=== PATIENT | male | born 1980 | race Two or more races ===

== ENCOUNTER 2018-05-26 19:56 | Emergency (ER) | payer MEDICAID, OTHER ==
[~2018-05-26] VITALS: Ht 175.3 cm; Wt 83.9 kg
[2018-05-26 20:54] VITALS: BP 154/97
== END 2018-05-26 23:00 | disposition left against medical advice (07) ==
LOC: ER 19:56
DX: S61.219A Laceration without foreign body of unspecified finger without damage to nail, initial encounter (principal); Z53.21 Procedure and treatment not carried out due to patient leaving prior to being seen by health care provider; W45.8XXA Other foreign body or object entering through skin, initial encounter; Y93.89 Activity, other specified; Y99.8 Other external cause status; Y92.89 Other specified places as the place of occurrence of the external cause

== ENCOUNTER 2020-09-06 15:06 | Inpatient (IN) | payer MEDICAID ==
[~2020-09-06] VITALS: Ht 172.7 cm; Wt 108.7 kg
[2020-09-06] MEDS ORDERED: cloNIDine HCL 0.1 MG TAB PO ONE ×2 (16:15→19:45)
[2020-09-06 16:31] LABS: Basophils # (auto) 0.1 10 ^3/uL (0-0.2); Basophils % (auto) 0.7 % (0.0-2.0); Eosinophils # (auto) 0.3 10 ^3/uL (0-0.8); Eosinophils % (auto) 2.5 % (0.0-7.0); Lymphocytes # (auto) 3.8 10 ^3/uL (0.4-5.4); Lymphocytes % (auto) 28.3 % (10.0-50.0); Mean Corpuscular Hemoglobin 29.5 pg (28.0-32.0); Mean Corpuscular Hgb Conc. 34.1 g/dL (32.0-36.0); Mean Corpuscular Volume 86.4 fL (80.0-100.0); Monocytes # (auto) 1.2 10 ^3/uL (0-1.3); Monocytes % (auto) 9.1 % (0.0-12.0); Neutrophils % (auto) 59.4 % (37.0-80.0); Nucleated Red Blood Cells % 0.1 %; Red Blood Cells 4.74 10^6/uL (4.5-5.90); White Blood Cell 13.5 10^3/uL (4.4-10.8)
[2020-09-06 16:44] LABS: Magnesium 2.3 mg/dL (1.6-2.6)
[2020-09-06 20:41] LABS: Calcium 8.7 mg/dL (8.5-10.1); Potassium 3.1 mmol/L (3.5-5.1)
[2020-09-06 20:44] LABS: Bilirubin, Total 0.3 mg/dL (0.2-1.0); Total Protein 8.2 g/dL (6.4-8.2)
[2020-09-06] MEDS ORDERED: LABETALOL HCL 5 MG/ML 4ML SYRINGE IV ONE (22:00)
[2020-09-06 22:33] LABS: Urine Bacteria NONE SEEN /hpf (None Seen); Urine Blood Negative /uL (Negative); Urine Specific Gravity 1.014 (1.001-1.035); Urine WBC <1 /hpf (0 - 3)
[2020-09-07] MEDS ORDERED: POTASSIUM CHL 20 Meq TABLET PO ONE (00:45)
[2020-09-07] MEDS ORDERED: MORPHINE SULFATE INJECTION 2 MG/ML SYRG IV PRN (00:45)
[2020-09-07] MEDS ORDERED: NITROGLYCERIN 0.4 MG SL TAB SL PRN (00:45)
[2020-09-07] MEDS ORDERED: ENALAPRILAT 1.25 MG/ML-1ML VIAL IV ONE (00:45)
[2020-09-07] MEDS ORDERED: ONDANSETRON HCL 4 MG/2 ML VIAL IV PRN (00:45)
[2020-09-07 01:24] LABS: Cholesterol 237 mg/dL (< 200)
[2020-09-07 01:42] LABS: HDL Cholesterol 35 mg/dL (40-59); LDL Cholesterol 144 mg/dL (< 100); Triglycerides 336 mg/dL (< 150)
[2020-09-07] MEDS: cloNIDine HCL 0.1 MG TAB PO PRN ×3 (02:05→18:19)
[2020-09-07 02:27] VITALS: BP 165/104
[2020-09-07 03:12] VITALS: BP 165/104
[2020-09-07] MEDS ORDERED: cloNIDine HCL 0.1 MG TAB PO ONE (06:30)
[2020-09-07 09:00] VITALS: BP 164/107
[2020-09-07] MEDS ORDERED: amLODIPine BESYLATE 5 MG TAB PO SCH (10:00)
[2020-09-07] MEDS: FAMOTIDINE 20 MG TAB PO SCH ×2 (12:14→20:11)
[2020-09-07] MEDS: ACETAMINOPHEN 325 MG TAB PO PRN (12:21)
[2020-09-07 13:00] VITALS: BP 165/98
[2020-09-07] MEDS ORDERED: amLODIPine BESYLATE 5 MG TAB PO ONE (15:30)
[2020-09-07] MEDS ORDERED: LISINOPRIL 10 MG TAB PO ONE (15:30)
[2020-09-07 17:00] VITALS: BP 162/97
[2020-09-07] MEDS: ATORVASTATIN 20 MG TAB PO SCH (20:11)
[2020-09-07 22:00] VITALS: BP 160/79
[2020-09-07] MEDS ORDERED: ATORVASTATIN 20 MG TAB PO SCH (22:00)
[2020-09-08 05:00] VITALS: BP 134/81
[2020-09-08 07:23] LABS: Basophils # (auto) 0.1 10 ^3/uL (0-0.2); Basophils % (auto) 0.7 % (0.0-2.0); Eosinophils # (auto) 0.5 10 ^3/uL (0-0.8); Eosinophils % (auto) 3.5 % (0.0-7.0); Hematocrit 36.6 % (41.0-53.0); Hemoglobin 12.3 g/dL (13.5-17.5); Lymphocytes # (auto) 3.6 10 ^3/uL (0.4-5.4); Lymphocytes % (auto) 25.4 % (10.0-50.0); Mean Corpuscular Hemoglobin 29.3 pg (28.0-32.0); Mean Corpuscular Hgb Conc. 33.7 g/dL (32.0-36.0); Monocytes # (auto) 1.6 10 ^3/uL (0-1.3); Monocytes % (auto) 11.1 % (0.0-12.0); Neutrophils # (auto) 8.4 10 ^3/uL (1.6-8.6); Neutrophils % (auto) 59.3 % (37.0-80.0); Red Blood Cells 4.21 10^6/uL (4.5-5.90); Red Cell Distribution Width 14.4 % (11.8-14.3); White Blood Cell 14.2 10^3/uL (4.4-10.8)
[2020-09-08 07:42] LABS: BUN/Creatinine Ratio 13.9; Calcium 8.6 mg/dL (8.5-10.1); Potassium 3.1 mmol/L (3.5-5.1)
[2020-09-08 09:00] VITALS: BP 129/99
[2020-09-08] MEDS ORDERED: LISINOPRIL 10 MG TAB PO SCH (10:00)
[2020-09-08] MEDS: FAMOTIDINE 20 MG TAB PO SCH ×2 (10:15→20:13)
[2020-09-08] MEDS: amLODIPine BESYLATE 5 MG TAB PO SCH (10:16)
[2020-09-08 13:00] VITALS: BP 158/99
[2020-09-08] MEDS ORDERED: LORazepam 2MG/ML-1ML VIAL IV ONE (13:30)
[2020-09-08] MEDS ORDERED: POTASSIUM CHL 20 Meq TABLET PO ONE (13:30)
[2020-09-08 17:00] VITALS: BP 138/81
[2020-09-08] MEDS: METOPROLOL SUCCINATE XL 50 MG TAB PO SCH (20:13)
[2020-09-08] MEDS: ATORVASTATIN 20 MG TAB PO SCH (20:13)
[2020-09-08 22:00] VITALS: BP 133/90
[2020-09-09] MEDS: TEMAZEPAM 15 MG CAP PO PRN ×2 (00:12→23:10)
[2020-09-09 05:17] VITALS: BP 142/99
[2020-09-09 06:51] LABS: Basophils # (auto) 0.1 10 ^3/uL (0-0.2); Basophils % (auto) 0.7 % (0.0-2.0); Eosinophils # (auto) 0.4 10 ^3/uL (0-0.8); Eosinophils % (auto) 3.1 % (0.0-7.0); Hematocrit 39.8 % (41.0-53.0); Hemoglobin 13.6 g/dL (13.5-17.5); Lymphocytes # (auto) 3.8 10 ^3/uL (0.4-5.4); Lymphocytes % (auto) 30.1 % (10.0-50.0); Mean Corpuscular Hemoglobin 29.7 pg (28.0-32.0); Mean Corpuscular Hgb Conc. 34.1 g/dL (32.0-36.0); Monocytes # (auto) 1.3 10 ^3/uL (0-1.3); Neutrophils # (auto) 7.2 10 ^3/uL (1.6-8.6); Neutrophils % (auto) 56.1 % (37.0-80.0); Red Blood Cells 4.58 10^6/uL (4.5-5.90); Red Cell Distribution Width 14.2 % (11.8-14.3); White Blood Cell 12.8 10^3/uL (4.4-10.8)
[2020-09-09 07:09] LABS: Calcium 8.5 mg/dL (8.5-10.1); Potassium 3.3 mmol/L (3.5-5.1)
[2020-09-09 07:11] LABS: BUN/Creatinine Ratio 16.1
[2020-09-09 09:00] VITALS: BP 123/94
[2020-09-09] MEDS ORDERED: POTASSIUM CHL 20 Meq TABLET PO ONE (09:15)
[2020-09-09 10:48] LABS: Hepatitis A Ab IgM Negative; Hepatitis C Antibody Negative (Negative)
[2020-09-09 10:49] LABS: Hepatitis B Core IgM Negative; Hepatitis B Surface Antigen Negative (Negative)
[2020-09-09] MEDS: FAMOTIDINE 20 MG TAB PO SCH ×2 (10:52→21:33)
[2020-09-09] MEDS: amLODIPine BESYLATE 5 MG TAB PO SCH (10:52)
[2020-09-09] MEDS: METOPROLOL SUCCINATE XL 50 MG TAB PO SCH (10:53)
[2020-09-09 11:28] LABS: Alcohol, Urine < 3.0 mg/dL (0-10); Amphetamine Screen, Urine NEGATIVE (NEGATIVE); Barbiturate Scree,Urine NEGATIVE (NEGATIVE); Benzodiazephine Screen, Urine NEGATIVE (NEGATIVE); Cannabinoid Screen, Urine NEGATIVE (NEGATIVE); Cocaine Screen, Urine NEGATIVE (NEGATIVE); Opiate Scree,Urine NEGATIVE (NEGATIVE); Phencyclidine Screen, Urine NEGATIVE (NEGATIVE); Protein, Urine 21.3 mg/dL (0.0-11.9)
[2020-09-09] MEDS ORDERED: GADOTERATE MEG 10 MMOL/20ml INJ (0.5MMOL/ml) IV ONE (11:49)
[2020-09-09 13:00] VITALS: BP 117/83
[2020-09-09 16:52] VITALS: BP 153/98
[2020-09-09] MEDS: ATORVASTATIN 20 MG TAB PO SCH (21:33)
[2020-09-09 22:00] VITALS: BP 155/88
[2020-09-09] MEDS: ACETAMINOPHEN 325 MG TAB PO PRN (23:10)
[2020-09-10 05:00] VITALS: BP 151/110
[2020-09-10] MEDS: ACETAMINOPHEN 325 MG TAB PO PRN (05:12)
[2020-09-10] MEDS: cloNIDine HCL 0.1 MG TAB PO PRN (05:36)
[2020-09-10 07:04] LABS: Calcium 8.8 mg/dL (8.5-10.1); Potassium 3.6 mmol/L (3.5-5.1)
[2020-09-10 07:06] LABS: BUN/Creatinine Ratio 12.1
[2020-09-10 08:00] VITALS: BP 154/89
[2020-09-10 09:00] VITALS: BP 154/89
[2020-09-10] MEDS ORDERED: LOSARTAN POTASSIUM 50 MG TAB PO SCH (10:00)
[2020-09-10] MEDS: amLODIPine BESYLATE 5 MG TAB PO SCH (10:11)
[2020-09-10] MEDS: METOPROLOL SUCCINATE XL 50 MG TAB PO SCH (10:12)
[2020-09-10] MEDS: FAMOTIDINE 20 MG TAB PO SCH (10:12)
[2020-09-10 13:00] VITALS: BP 137/89
[2020-09-10] MEDS ORDERED: METO25TA93 PO (13:10)
[2020-09-10] MEDS ORDERED: LOSA-69 PO (13:11)
[2020-09-10] MEDS ORDERED: ATOR20TA50 PO (13:12)
[2020-09-10] MEDS ORDERED: AMLO-496 PO (13:12)
[2020-09-10 13:39] VITALS: BP 154/89
== END 2020-09-10 15:00 | disposition home or self-care (01) | DRG 469 ==
LOC: ER 15:06 → TELE 09-07 00:41 → TELE-EAST 09-07 02:18
PROVIDERS: ADMIT Nurse Practitioner; ATTEND Internal Medicine Nephrology
DX: N17.9 Acute kidney failure, unspecified (principal); K86.2 Cyst of pancreas; N28.1 Cyst of kidney, acquired; E66.2 Morbid (severe) obesity with alveolar hypoventilation; N18.31 Chronic kidney disease, stage 3a; E87.6 Hypokalemia; F15.10 Other stimulant abuse, uncomplicated; R80.9 Proteinuria, unspecified; I12.9 Hypertensive chronic kidney disease with stage 1 through stage 4 chronic kidney disease, or unspecified chronic kidney disease; Z20.822 Contact with and (suspected) exposure to COVID-19; E78.5 Hyperlipidemia, unspecified; Z68.36 Body mass index [BMI] 36.0-36.9, adult; Z90.49 Acquired absence of other specified parts of digestive tract; Z83.3 Family history of diabetes mellitus; I16.9 Hypertensive crisis, unspecified
CPT/HCPCS: 36415; 71045; 74183; 76775; 80048; 80053; 80061; 80074; 80307; 81001; 82088; 82533; 82570; 83036; 83735; 83835; 83970; 84156; 84244; 84300; 84443; 84484; 85025; 87426; 93306; 93975; 96374; G0378; J3490

== ENCOUNTER 2021-01-26 05:50 | Emergency (ER) | payer MEDICAID ==
[~2021-01-26] VITALS: Ht 172.7 cm; Wt 81.6 kg
[~2021-01-26 05:50] MED LIST: AMLO-496 PO; ATOR20TA50 PO; LOSA-69 PO; METO25TA93 PO
[2021-01-26] MEDS ORDERED: cloNIDine HCL 0.1 MG TAB PO ONE (06:00)
[2021-01-26] MEDS ORDERED: IBUPROFEN 600 MG TAB PO ONE (07:45)
[2021-01-26] MEDS ORDERED: LOSARTAN POTASSIUM 50 MG TAB PO ONE (08:00)
[2021-01-26 15:59] VITALS: BP 153/112
[2021-01-26] MEDS ORDERED: CEPH-322 PO (16:57)
[2021-01-26] MEDS ORDERED: METR500T PO (16:57)
== END 2021-01-26 17:16 | disposition home or self-care (01) ==
LOC: ER 05:50
DX: L03.113 Cellulitis of right upper limb (principal); E78.5 Hyperlipidemia, unspecified; I10 Essential (primary) hypertension; Z90.49 Acquired absence of other specified parts of digestive tract; Z79.899 Other long term (current) drug therapy
CPT/HCPCS: 73110